=== PATIENT | male | born 1980 | race Two or more races ===

== ENCOUNTER 2021-02-05 14:48 | Emergency (ER) | payer OTHER ==
[~2021-02-05] VITALS: Ht 175.3 cm; Wt 95.3 kg
[2021-02-05] MEDS ORDERED: CORTISPORIN EAR10 M1 OPHT (17:54)
[2021-02-05] MEDS ORDERED: IBU800 MG PO (17:56)
== END 2021-02-05 17:57 | disposition home or self-care (01) ==
LOC: ER 14:48
DX: H60.91 Unspecified otitis externa, right ear (principal)